=== PATIENT | female | born 1950 ===

== ENCOUNTER 2019-05-25 08:28 | Day surgery (SDC) | payer MEDICARE ==
[~2019-05-25 08:28] MED LIST: Acetaminophen TAB* 325 MG PO PRN; Buffered Lidocaine 1% SYRIN* 1 ML/SYRINGE INTRADERM ONE; Trypan Blue 0.06% SOL* 0.5 ML BTL ONE
[2019-05-25] MEDS ORDERED: Neomycin/Polymy/Dex OPTH.SUSP* MAXITROL 0.1% 5 ML ONE (10:01)
[2019-05-25] MEDS ORDERED: acetaZOLAMIDE TAB* 250 MG ONE (10:01)
[2019-05-25] MEDS ORDERED: Ketorolac 0.5% OPHTH (NF) 0.5 % 5 ML BTL ONE (10:01)
[2019-05-25] MEDS ORDERED: Povidone Iodine 5% OPTH* 30 ML BTL ONE (10:01)
[2019-05-25] MEDS ORDERED: Proparacaine 0.5% OPHTH.SOL* 15 ML BTL ONE (10:01)
[2019-05-25] MEDS ORDERED: Lidocaine 1% MPF ** 5 ML VIAL ONE (10:01)
[2019-05-25] MEDS ORDERED: Phenylephrine OPHTH SOL 2.5%* 2 ML ONE (10:01)
[2019-05-25] MEDS ORDERED: Lidocaine 2% w/ EPI 1:200,000* 20 ML SDV VIAL ONE (10:01)
[2019-05-25] MEDS ORDERED: Cyclopentolate 1% OPTH.SOL* 2 ML BTL ONE (10:01)
[2019-05-25] MEDS ORDERED: Trypan Blue 0.06% SOL* 0.5 ML BTL ONE (10:33)
[2019-05-25] MEDS ORDERED: Midazolam* 1 MG/ML 2 ML VIAL (2 MG) ONE ×3 (10:37→11:27)
[2019-05-25 11:37] VITALS: BP 108/52
--- NOTE | 2019-05-25 13:46 | OP ---
DATE OF OPERATION: 05/25/2019 - [facility] DATE OF : 1950. SURGEON: William Victoria M.D. PREOPERATIVE DIAGNOSIS: Cataract left eye. POSTOPERATIVE DIAGNOSIS: Cataract left eye. OPERATIVE PROCEDURE: Extracapsular cataract extraction with intraocular lens implant left eye. DESCRIPTION OF PROCEDURE: The patient was brought to the operating room after being given 1/2% Alcaine with epinephrine drops in the preoperative area. The eye was prepped and draped in the usual sterile fashion. Sterile drape and eyelid speculum were placed. Again, topical 1/2% Alcaine with epinephrine was given. A paracentesis incision was made at the 3 o'clock position with the No.75 blade. Clear cornea incision 2.2 x 2.2-mm was created at the 6 o'clock position starting at the anterior limbus using the 2.2-mm keratome. The anterior chamber was irrigated with 0.4 mL of 1% non-preservative intracameral lidocaine and filled with DisCoVisc. A capsulorrhexis was completed using the cystotome and the Utrata forceps. Hydrodissection was performed with balanced salt solution. The lens nucleus was removed with the Phacoemulsification handpiece without incident. Cortex was removed with the irrigation-aspiration handpiece. The capsular bag was re-inflated using DisCoVisc and an SN60WF 16.5 implant was inserted with the shooter. She had a very dense lens and a white cataract. VisionBlue was used to stain the anterior capsule prior to capsulorrhexis. The irrigation-aspiration handpiece was used to remove all residual DisCoVisc. The eye was refilled with balanced salt solution and the wound checked and found to be watertight. Topical Maxitrol drops were given. Indication for complex cataract surgery: White cataract requiring capsular stain. [id number]/[facility] #: [id number] [facility] HOSPITALGildardo
== END 2019-05-25 11:27 | disposition home or self-care (01) ==
LOC: OREAST 08:28
PROVIDERS: ATTEND Specialist
DX: H25.812 Combined forms of age-related cataract, left eye (principal); H50.112 Monocular exotropia, left eye; E11.42 Type 2 diabetes mellitus with diabetic polyneuropathy; Z79.4 Long term (current) use of insulin; Z79.84 Long term (current) use of oral hypoglycemic drugs; H53.022 Refractive amblyopia, left eye; F17.210 Nicotine dependence, cigarettes, uncomplicated; M19.90 Unspecified osteoarthritis, unspecified site; J44.9 Chronic obstructive pulmonary disease, unspecified; I25.2 Old myocardial infarction; E03.9 Hypothyroidism, unspecified; K76.0 Fatty (change of) liver, not elsewhere classified; E78.2 Mixed hyperlipidemia; I25.10 Atherosclerotic heart disease of native coronary artery without angina pectoris; Z95.5 Presence of coronary angioplasty implant and graft; G89.29 Other chronic pain; M79.89 Other specified soft tissue disorders
CPT/HCPCS: A9270-GY; J2250; V2632